=== PATIENT | male | born 1995 | race African-American/Black ===

== ENCOUNTER 2025-09-22 10:08 | Emergency (ER) | payer OTHER ==
[~2025-09-22] VITALS: Ht 172.7 cm; Wt 70.0 kg
[2025-09-22 10:11] VITALS: O2SAT 99
[2025-09-22] MEDS: ACETAMINOPHEN 325MG TABLET PO ONE (10:59)
[2025-09-22] MEDS ORDERED: ACET-2708 MT (11:22)
[2025-09-22 11:43] VITALS: BP 99/57; PULSE 71; RESP 15; TEMP 36.6; O2SAT 88
== END 2025-09-22 11:46 | disposition home or self-care (01) ==
LOC: ER 10:08
DX: S69.92XA Unspecified injury of left wrist, hand and finger(s), initial encounter (principal); W11.XXXA Fall on and from ladder, initial encounter; Y93.89 Activity, other specified; Y92.89 Other specified places as the place of occurrence of the external cause; Y99.8 Other external cause status
CPT/HCPCS: 29125; 73100; 99283